=== PATIENT | male | born 1970 | race Caucasian/White ===

== ENCOUNTER 2017-07-08 12:55 | Emergency (ER) | payer MEDICAID ==
[~2017-07-08] VITALS: Ht 180.3 cm; Wt 74.3 kg
[2017-07-08 13:08] VITALS: BP 121/64
== END 2017-07-08 14:08 ==
LOC: ED 13:55
DX: J20.8 Acute bronchitis due to other specified organisms (principal)
CPT/HCPCS: 71020; 99284; J7512

== ENCOUNTER 2017-10-07 18:37 | Inpatient (IN) | payer MEDICAID ==
[~2017-10-07] VITALS: Ht 180.3 cm; Wt 70.0 kg
[2017-10-07 19:00] LABS: HEMATOCRIT 33.7 % (39.2-51.8); HEMOGLOBIN 11.2 g/dL (13.7-18.0); WHITE BLOOD COUNT 24.3 x10^3/uL (3.4-10)
[2017-10-07 19:11] LABS: BLOOD UREA NITROGEN 19 mg/dL (7-18)
[2017-10-07 19:14] LABS: DIFF TOTAL CELLS COUNTED 100 CELL DIFF
[2017-10-07 19:15] LABS: VERIFY COUNTS? YES
[2017-10-07 19:18] LABS: IS PT STATUS REG ER OR PRE ER? YES
[2017-10-07] MEDS ORDERED: OMNIPAQUE 350 MG/ML, 100ML BOTTLE ONE (20:42)
[2017-10-07] MEDS ORDERED: CEFTRIAXONE PMX 1GM/50ML 50 ML IVPB ONE (21:00)
[2017-10-07] MEDS ORDERED: CEFTRIAXONE PMX 1GM/50ML 50 ML ONE (21:11)
[2017-10-07] MEDS ORDERED: ONDANSETRON 2MG/ML, 2ML IVPush PRN (22:00)
[2017-10-07] MEDS ORDERED: POLYETHYLENE GLYCOL 17 GM PACKET PO PRN (22:00)
[2017-10-07] MEDS ORDERED: AZITHROMYCIN 500 MG in SODIUM CHLORIDE 0.9% 250 ML IV SCH (22:00)
[2017-10-07] MEDS ORDERED: OXYcodone IR 5MG TABLET PO PRN (22:00)
[2017-10-07] MEDS ORDERED: CEFTRIAXONE PMX 1GM/50ML 50 ML IV SCH (22:00)
[2017-10-07] MEDS ORDERED: GUAIFENESIN/DM 200-20MG, 10ML UDC PO PRN (22:00)
[2017-10-07] MEDS ORDERED: ACETAMINOPHEN 325 MG TABLET PO PRN (22:00)
[2017-10-07] MEDS ORDERED: BISACODYL 10 MG SUPP PR PRN (22:00)
[2017-10-07] MEDS ORDERED: KETOROLAC 30 MG/1 ML IVPush PRN (22:30)
[2017-10-07 22:35] VITALS: BP 103/63
[2017-10-07] MEDS: HEPARIN 5,000 UNITS/ML, 1ML SQ SCH (22:48)
[2017-10-07] MEDS: NICOTINE 21 MG/24 HR PATCH.TD24 TD SCH (22:48)
[2017-10-07] MEDS: NS + 20MEQ KCL 1,000 ML IV SCH (23:12)
[2017-10-08 01:46] VITALS: BP 107/61
[2017-10-08] MEDS ORDERED: ALBUTEROL/IPRATROPIUM 2.5MG/0.5MG, 3 ML NPPB PRN (04:30)
[2017-10-08] MEDS: HEPARIN 5,000 UNITS/ML, 1ML SQ SCH (06:10)
[2017-10-08 06:33] LABS: ASPARTATE AMINO TRANSFERASE 39 U/L (15-37); BLOOD UREA NITROGEN 17 mg/dL (7-18)
[2017-10-08 07:09] LABS: HEMATOCRIT 33.6 % (39.2-51.8); HEMOGLOBIN 11.3 g/dL (13.7-18.0); WHITE BLOOD COUNT 24.6 x10^3/uL (3.4-10)
[2017-10-08 07:15] VITALS: BP 99/63
[2017-10-08] MEDS: ALBUTEROL/IPRATROPIUM 2.5MG/0.5MG, 3 ML NPPB SCH ×2 (08:20→11:00)
[2017-10-08] MEDS ORDERED: SENNA/DOCUSATE TABLET PO SCH (09:00)
[2017-10-08] MEDS: NS + 20MEQ KCL 1,000 ML IV SCH (11:14)
[2017-10-08] MEDS: NICOTINE 21 MG/24 HR PATCH.TD24 TD SCH (11:52)
[2017-10-08 12:01] VITALS: BP 120/73
[2017-10-08] MEDS ORDERED: GUAIFENESIN ER 600 MG TABLET PO SCH (21:00)
== END 2017-10-08 13:18 | disposition left against medical advice (07) | DRG 190 ==
LOC: ED 21:36 → EDIP 21:40 → 4NOR 22:09
PROVIDERS: ADMIT Surgery; ATTEND Surgery
DX: J44.0 Chronic obstructive pulmonary disease with (acute) lower respiratory infection (principal); J18.1 Lobar pneumonia, unspecified organism; E44.1 Mild protein-calorie malnutrition; E83.51 Hypocalcemia; E87.1 Hypo-osmolality and hyponatremia; D64.9 Anemia, unspecified; E87.6 Hypokalemia; F17.200 Nicotine dependence, unspecified, uncomplicated; Z59.0 Homelessness; Z90.49 Acquired absence of other specified parts of digestive tract; Z68.21 Body mass index [BMI] 21.0-21.9, adult
CPT/HCPCS: 36415; 71010; 71275; 80048; 80053; 82040; 83880; 84484; 85025; 85379; 87040; 93005; 94640; J0456; J0696; J1644; J1885; J3480; J7620; Q9967; J7050

== ENCOUNTER 2017-10-13 01:59 | Emergency (ER) | payer MEDICAID ==
[~2017-10-13] VITALS: Ht 180.3 cm; Wt 65.6 kg
[2017-10-13 02:35] LABS: BASOPHILS # (AUTO) 0.23 x10^3/uL (0-0.1); BASOPHILS % (AUTO) 3 % (0-1); EOSINOPHILS # (AUTO) 0.35 x10^3/uL (0-0.4); EOSINOPHILS % (AUTO) 4 % (1-7); LYMPHOCYTES # (AUTO) 2.02 x10^3/uL (1-3.4); LYMPHOCYTES % (AUTO) 23 % (22-44); MD NO; MEAN CORPUSCULAR HEMOGLOBIN 31.1 pg (27.5-34.5); MEAN CORPUSCULAR HGB CONC 33.2 g/dL (33.2-36.2); MEAN CORPUSCULAR VOLUME 93.7 fL (81-97); MEAN PLATELET VOLUME 7.5 fL (7.4-10.4); MONOCYTES # (AUTO) 0.62 x10^3/uL (0.2-0.8); MONOCYTES % (AUTO) 7 % (2-9); NEUTROPHILS # (AUTO) 5.58 x10^3/uL (1.8-6.8); NEUTROPHILS % (AUTO) 63 % (42-75); PLATELET COUNT 404 x10^3/uL (130-400); RED BLOOD COUNT 3.66 x10^6/uL (4.38-5.82); RED CELL DISTRIBUTION WIDTH 13.5 % (9.4-14.8)
[2017-10-13 02:38] LABS: ALBUMIN 3.1 g/dL (3.4-5.0); ANION GAP 6 mmol/L (5-15); CALCIUM 8.5 mg/dL (8.5-10.1); CHLORIDE 108 mmol/L (98-107)
[2017-10-13 02:42] LABS: TROPONIN I < 0.015 ng/mL (0.000-0.045)
[2017-10-13 03:13] VITALS: BP 122/68
== END 2017-10-13 03:15 | disposition home or self-care (01) ==
LOC: ED 02:26
DX: J44.1 Chronic obstructive pulmonary disease with (acute) exacerbation (principal)
CPT/HCPCS: 36415; 80048; 82040; 84484; 85025; 93005

== ENCOUNTER 2020-01-17 11:23 | Emergency (ER) | payer SELFPAY ==
[~2020-01-17] VITALS: Ht 180.3 cm; Wt 84.0 kg
[2020-01-17 11:28] VITALS: BP 126/72
[2020-01-17] MEDS ORDERED: CIPROFLOXACIN DEXAMETHASONE EAR SUSP 7.5ML RIGHT EAR ONE (12:00)
[2020-01-17] MEDS ORDERED: AMOXICILLIN 500 MG CAPSULE PO SCH (12:00)
[2020-01-17] MEDS ORDERED: AMOXICILLIN 500 MG CAPSULE ONE (12:06)
== END 2020-01-17 12:20 | disposition home or self-care (01) ==
LOC: ED 12:06
DX: H66.001 Acute suppurative otitis media without spontaneous rupture of ear drum, right ear (principal); H61.22 Impacted cerumen, left ear
CPT/HCPCS: 99283

== ENCOUNTER 2021-06-25 21:12 | Emergency (ER) | payer MEDICAID ==
[~2021-06-25] VITALS: Ht 180.3 cm; Wt 62.9 kg
[2021-06-25 21:20] VITALS: BP 95/66
== END 2021-06-26 00:18 | disposition home or self-care (01) ==
LOC: ED 21:22
DX: L03.114 Cellulitis of left upper limb (principal); M25.511 Pain in right shoulder; M25.522 Pain in left elbow; J44.9 Chronic obstructive pulmonary disease, unspecified; F17.210 Nicotine dependence, cigarettes, uncomplicated
CPT/HCPCS: 99284